=== PATIENT | female | born 1940 | race Two or more races ===

== ENCOUNTER 2019-02-14 15:08 | Emergency (ER) | payer OTHER, MEDICARE ==
[~2019-02-14] VITALS: Ht 160 cm; Wt 77.0 kg
[2019-02-14] MEDS ORDERED: ASPI-1393 PO (15:23)
[2019-02-14] MEDS ORDERED: ALLO300T2 PO (15:23)
[2019-02-14] MEDS ORDERED: LOSA1TAB40 PO (15:23)
[2019-02-14] MEDS ORDERED: ATOR-2 PO (15:23)
[2019-02-14 17:32] VITALS: BP 169/76
[2019-02-14 21:01] LABS: CLARITY URINE CLEAR (CLEAR); COLOR URINE YELLOW (YELLOW); KETONES URINE NEGATIVE (NEGATIVE); LEUKOCYTE ESTERASE URINE 2+ (NEGATIVE); NITRITE URINE NEGATIVE (NEGATIVE); OCCULT BLOOD URINE NEGATIVE (NEGATIVE); PROTEIN URINE NEGATIVE (NEGATIVE); SPECIFIC GRAVITY URINE 1.016 (1.005-1.030); UROBILINOGEN URINE 0.2 E.U./dL (0.2-1.0)
[2019-02-14] MEDS ORDERED: IBUPROFEN 600MG TABLET PO ONE (21:15)
== END 2019-02-14 22:29 | disposition home or self-care (01) ==
LOC: ER 21:51
DX: S09.8XXA Other specified injuries of head, initial encounter (principal); I10 Essential (primary) hypertension; Z90.49 Acquired absence of other specified parts of digestive tract; W01.0XXA Fall on same level from slipping, tripping and stumbling without subsequent striking against object, initial encounter; Y93.89 Activity, other specified; Y92.512 Supermarket, store or market as the place of occurrence of the external cause
CPT/HCPCS: 81003; 99284